=== PATIENT | female | born 1980 | race Two or more races ===

== ENCOUNTER 2022-06-29 22:06 | Emergency (ER) | payer SELFPAY ==
[~2022-06-29] VITALS: Ht 162.6 cm; Wt 86.4 kg
[2022-06-29 22:30] LABS: Basophils # (auto) 0.1 10 ^3/uL (0-0.2); Basophils % (auto) 0.8 % (0.0-2.0); Eosinophils # (auto) 0.1 10 ^3/uL (0-0.8); Eosinophils % (auto) 1.3 % (0.0-7.0); Hematocrit 37.8 % (36.0-46.0); Hemoglobin 13.2 g/dL (12.2-16.2); Lymphocytes # (auto) 1.7 10 ^3/uL (0.4-5.4); Lymphocytes % (auto) 23.4 % (10.0-50.0); Mean Corpuscular Hemoglobin 29.4 pg (28.0-32.0); Mean Corpuscular Volume 84.1 fL (80.0-100.0); Monocytes # (auto) 0.4 10 ^3/uL (0-1.3); Monocytes % (auto) 5.5 % (0.0-12.0); Nucleated Red Blood Cells % 0.2 %; Red Cell Distribution Width 13.8 % (11.8-14.3); White Blood Cell 7.2 10^3/uL (4.4-10.8)
[2022-06-29 22:48] LABS: Calcium 9.1 mg/dL (8.5-10.1); Potassium 3.5 mmol/L (3.5-5.1)
[2022-06-29 22:57] LABS: Bilirubin, Total 0.3 mg/dL (0.2-1.0); Total Protein 7.4 g/dL (6.4-8.2)
[2022-06-29] MEDS ORDERED: KETOROLAC TROMETH 30 MG/ML 1ML VIAL IV ONE (23:30)
[2022-06-29] MEDS ORDERED: PROCHLORPERAZINE EDISYLATE 5 MG/ML 2ML VIAL IV ONE (23:30)
[2022-06-29] MEDS ORDERED: SODIUM CHLORIDE 0.9% 1,000 ML IV ONE (23:30)
[2022-06-30] MEDS ORDERED: ONDA-144 PO (01:17)
[2022-06-30] MEDS ORDERED: IBUP600T28 PO (01:17)
[2022-06-30 01:30] VITALS: BP 132/82
[2022-06-30 01:37] LABS: Urine Bacteria FEW /hpf (None Seen); Urine Blood TRACE /uL (Negative); Urine Mucus FEW (None Seen); Urine Specific Gravity 1.026 (1.001-1.035); Urine WBC 13 /hpf (0 - 5)
== END 2022-06-30 01:32 | disposition home or self-care (01) ==
LOC: ER 22:06
DX: R07.89 Other chest pain (principal); G43.909 Migraine, unspecified, not intractable, without status migrainosus
CPT/HCPCS: 36415; 70450; 71046; 80053; 81001; 81025; 84484; 85025; 93005; 96361; 96374; 96375; 99285; J0780; J1885; J7030

== ENCOUNTER 2022-12-04 12:57 | Emergency (ER) | payer MEDICAID, OTHER ==
[~2022-12-04] VITALS: Ht 162.6 cm; Wt 85.6 kg
[~2022-12-04 12:57] MED LIST: IBUP1TAB5 PO; ONDA-144 PO
[2022-12-04 13:13] VITALS: BP 138/82; PULSE 102; RESP 20; O2SAT 99
== END 2022-12-04 19:51 | disposition left against medical advice (07) ==
LOC: ER 12:57
DX: M79.10 Myalgia, unspecified site (principal); R51.9 Headache, unspecified; R05.9 Cough, unspecified; R09.81 Nasal congestion; J02.9 Acute pharyngitis, unspecified; Z53.21 Procedure and treatment not carried out due to patient leaving prior to being seen by health care provider

== ENCOUNTER 2023-08-26 00:58 | Inpatient (IN) | payer MEDICAID ==
[~2023-08-26] VITALS: Ht 162.6 cm; Wt 87.4 kg
[2023-08-26 01:31] LABS: Basophils # (auto) 0 10 ^3/uL (0-0.2); Basophils % (auto) 0.7 % (0.0-2.0); Eosinophils # (auto) 0.1 10 ^3/uL (0-0.8); Eosinophils % (auto) 1.3 % (0.0-7.0); Hematocrit 37.7 % (36.0-46.0); Hemoglobin 13.1 g/dL (12.2-16.2); Lymphocytes # (auto) 1.6 10 ^3/uL (0.4-5.4); Lymphocytes % (auto) 29.6 % (10.0-50.0); Mean Corpuscular Hemoglobin 29.4 pg (28.0-32.0); Mean Corpuscular Hgb Conc. 34.7 g/dL (32.0-36.0); Mean Corpuscular Volume 84.5 fL (80.0-100.0); Monocytes # (auto) 0.3 10 ^3/uL (0-1.3); Monocytes % (auto) 4.9 % (0.0-12.0); Neutrophils # (auto) 3.4 10 ^3/uL (1.6-8.6); Neutrophils % (auto) 63.5 % (37.0-80.0); Nucleated Red Blood Cells % 0.1 %; Red Blood Cells 4.46 10^6/uL (4.0-5.20); Red Cell Distribution Width 15.1 % (11.8-14.3); White Blood Cell 5.3 10^3/uL (4.4-10.8)
[2023-08-26 01:43] LABS: Alanine Aminotransferase 14 U/L (7-40); Albumin 4.3 g/dL (3.2-4.8); Alkaline Phosphatase 57 U/L (46-116); Anion Gap 8 (5-15); Aspartate Aminotransferase 9 U/L (13-40); BUN/Creatinine Ratio 10.3 (10.0-20.0); Bilirubin, Total 0.5 mg/dL (0.2-1.0); Blood Urea Nitrogen 8 mg/dL (9-23); Calcium 9.7 mg/dL (8.7-10.4); Carbon Dioxide 23 mmol/L (20-30); Chloride 108 mmol/L (98-107); Glucose 104 mg/dL (74-106); Potassium 3.4 mmol/L (3.5-5.1); Sodium 139 mmol/L (136-145)
[2023-08-26 02:08] LABS: INR 1.06 (0.9-1.15); Partial Thromboplastin Time 26.9 SEC (24.5-34.5); Prothrombin Time 11.2 sec (9.3-11.8)
[2023-08-26] MEDS ORDERED: ONDANSETRON HCL 4 MG/2 ML VIAL IV PRN (06:15)
[2023-08-26] MEDS ORDERED: NITROGLYCERIN 0.4 MG SL TAB SL PRN (06:15)
[2023-08-26] MEDS ORDERED: MORPHINE SULFATE INJ 2 MG/ml SYRG IV PRN (06:15)
[2023-08-26 08:59] LABS: Cholesterol 264 mg/dL (< 200); Triglycerides 87 mg/dL (< 150)
[2023-08-26 09:00] LABS: LDL Cholesterol 212 mg/dL (< 100)
[2023-08-26 09:01] LABS: HDL Cholesterol 53 mg/dL (40-59)
[2023-08-26] MEDS: ASPirin 81 mg TAB PO SCH (09:40)
[2023-08-26] MEDS: ONDANSETRON HCL 4 MG/2 ML VIAL IV ONE (09:40)
[2023-08-26] MEDS: MAALOX PLUS or MAALOX 30 ML PO ONE (09:40)
[2023-08-26] MEDS: SODIUM CHLORIDE 0.9% 1,000 ML IV ONE (09:42)
[2023-08-26] MEDS: PANTOPRAZOLE 40 MG/10 ML VIAL INJ IV ONE (09:42)
[2023-08-26 14:45] VITALS: PULSE 60; RESP 19; O2SAT 99
[2023-08-26 15:52] LABS: Urine Bacteria None Seen /hpf (None Seen)
[2023-08-26 16:12] LABS: Urine Blood TRACE /uL (Negative); Urine Clarity Clear (Clear); Urine Color Light-Yellow (Yellow); Urine Protein, UAD Negative (Negative); Urine Specific Gravity 1.017 (1.001-1.035); Urine Urobilinogen Normal (Negative); Urine WBC 3 /hpf (0 - 5)
[2023-08-26 16:15] LABS: Amphetamine Screen, Urine Neg (NEGATIVE); Barbiturate Scree,Urine Neg (NEGATIVE); Benzodiazephine Screen, Urine Neg (NEGATIVE); Cocaine Screen, Urine Neg (NEGATIVE); Opiate Scree,Urine Neg (NEGATIVE)
[2023-08-26 16:16] LABS: Cannabinoid Screen, Urine Neg (NEGATIVE); Phencyclidine Screen, Urine Neg (NEGATIVE)
[2023-08-26] MEDS: ACETAMINOPHEN 325 MG TAB PO PRN (20:49)
[2023-08-26] MEDS: ATORVASTATIN 20 MG TAB PO SCH (22:20)
[2023-08-26 22:54] VITALS: BP 139/82; PULSE 53; RESP 18; TEMP 98; O2SAT 98
[2023-08-27 01:00] VITALS: BP 121/71; PULSE 48; RESP 17; TEMP 98; O2SAT 97
[2023-08-27 05:00] VITALS: BP 123/67; PULSE 54; RESP 18; TEMP 98.4; O2SAT 100
[2023-08-27 06:32] LABS: Chloride 106 mmol/L (98-107); Potassium 3.7 mmol/L (3.5-5.1); Sodium 138 mmol/L (136-145)
[2023-08-27 06:33] LABS: Anion Gap 4 (5-15); Calcium 9.6 mg/dL (8.7-10.4); Carbon Dioxide 28 mmol/L (20-30)
[2023-08-27 06:38] LABS: BUN/Creatinine Ratio 12.8 (10.0-20.0); Blood Urea Nitrogen 11 mg/dL (9-23); Glucose 98 mg/dL (74-106)
[2023-08-27 08:00] VITALS: PULSE 50; PULSE 71; RESP 17; O2SAT 93
[2023-08-27 09:00] VITALS: BP 123/70; PULSE 66; RESP 16; TEMP 97.5; O2SAT 98
[2023-08-27] MEDS: ENOXAPARIN SOD 40 MG/0.4 ML SYRINGE SC SCH (09:43)
[2023-08-27 13:00] VITALS: BP 124/68; PULSE 71; RESP 17; TEMP 98.2; O2SAT 93
[2023-08-27] MEDS: KETOROLAC TROMETH 30 MG/ML 1ML VIAL IV ONE (13:00)
[2023-08-27 13:20] LABS: Erythrocyte Sedimentation Rate 8 mm/hr (0-20)
[2023-08-27 14:38] VITALS: BP 124/68; PULSE 71; RESP 17; TEMP 98.2; O2SAT 93
[2023-08-29 09:29] LABS: Hepatitis B Surface Antigen Negative (Negative)
[2023-08-29 09:50] LABS: Hepatitis C Antibody Negative (Negative)
== END 2023-08-27 16:00 | disposition home or self-care (01) | DRG 203 ==
LOC: ER 00:58 → TELE 06:13 → TELE-CENTR 22:52
PROVIDERS: ADMIT Nurse Practitioner; ATTEND Nurse Practitioner Acute Care
DX: M94.0 Chondrocostal junction syndrome [Tietze] (principal); E66.9 Obesity, unspecified; E78.5 Hyperlipidemia, unspecified; R01.1 Cardiac murmur, unspecified; I10 Essential (primary) hypertension; G43.909 Migraine, unspecified, not intractable, without status migrainosus; Z68.33 Body mass index [BMI] 33.0-33.9, adult; Z79.899 Other long term (current) drug therapy
CPT/HCPCS: 36415; 71045; 80048; 80053; 80061; 80307; 81001; 81025; 83036; 83735; 83880; 84443; 84484; 85025; 85610; 85652; 85730; 86141; 86803; 87340; 93005; 93306; 96361; 96374; 96375; G0378; J2405; J2470